=== PATIENT | female | born 1995 | race Hispanic/Latino ===

== ENCOUNTER 2022-04-28 19:29 | Emergency (ER) | payer OTHER ==
[~2022-04-28] VITALS: Ht 149.9 cm; Wt 49.9 kg
[2022-04-28] MEDS ORDERED: LACTATED RINGERS 1000ML 1,000 ML IV ONE (20:30)
[2022-04-28] MEDS ORDERED: MORPHINE 4 MG SYG IVP ONE (20:30)
[2022-04-28] MEDS ORDERED: ONDANSETRON 4MG INJ IVP ONE (20:30)
[2022-04-28 20:32] LABS: BASOPHILS % (AUTO) 0.3 % (0.0-5.0); EOSINOPHILS % (AUTO) 0.9 % (0.0-8.0); HEMATOCRIT 41.6 % (36-48); LYMPHOCYTES % (AUTO) 26.3 % (21.0-51.0); MEAN CORPUSCULAR HGB CONC 32.9 g/dL (32.0-36.0); MEAN CORPUSCULAR VOLUME 88.1 fL (79-99); MONOCYTES % (AUTO) 9.4 % (3.0-13.0); NEUTROPHILS % (AUTO) 62.7 % (40.0-77.0); PLATELET COUNT (AUTO) 306 K/uL (130-400); RED BLOOD CELL COUNT(AUTO) 4.72 MIL/uL (4.00-5.50); RED CELL DISTRIBUTION WIDTH 12.8 % (11.0-15.5); WHITE BLOOD COUNT (AUTO) 15.8 K/uL (4.8-10.8)
[2022-04-28] MEDS ORDERED: IOHEXOL 350 MG/ML 100ML INFUS..BTL IV ONE (20:36)
[2022-04-28 20:41] LABS: CREATININE 0.6 mg/dL (0.5-1.5); POTASSIUM 3.2 mmol/L (3.5-5.1)
[2022-04-28 20:42] LABS: INR 0.94 (0.85-1.15); PROTHROMBIN TIME 10.3 SEC (9.6-11.6)
[2022-04-28 20:43] LABS: PARTIAL THROMBOPLASTIN TIME 26.8 SEC (26.3-35.5)
[2022-04-28 20:53] LABS: ALBUMIN 3.9 g/dL (3.5-5.0); TOTAL PROTEIN, SERUM 7.5 g/dL (6.0-8.3)
[2022-04-28 21:22] LABS: APPEARANCE,URINE CLEAR (CLEAR); BILIRUBIN,URINE NEGATIVE (NEGATIVE); COLOR,URINE COLORLESS (YELLOW); GLUCOSE, URINE (UA) NEGATIVE (NEGATIVE); KETONES,URINE NEGATIVE (NEGATIVE); LEUKOCYTE ESTERASE ,URINE NEGATIVE Leu/uL (NEGATIVE); NITRATE,URINE NEGATIVE (NEGATIVE); OCCULT BLOOD,URINE NEGATIVE (NEGATIVE); PH,URINE 6.5 (5.0-8.0); PROTEIN,URINE NEGATIVE (NEGATIVE); UROBILINOGEN,URINE 0.2 mg/dL (0.2-1.0)
[2022-04-28] MEDS ORDERED: IBUP-1493 PO (21:57)
[2022-04-28] MEDS ORDERED: CYCL-309 PO (21:57)
[2022-04-28 22:15] VITALS: BP 141/75
== END 2022-04-28 22:26 | disposition home or self-care (01) ==
LOC: EDH 19:29
DX: S16.1XXA Strain of muscle, fascia and tendon at neck level, initial encounter (principal); S05.12XA Contusion of eyeball and orbital tissues, left eye, initial encounter; S05.11XA Contusion of eyeball and orbital tissues, right eye, initial encounter; V49.88XA Car occupant (driver) (passenger) injured in other specified transport accidents, initial encounter; Y93.89 Activity, other specified; Y92.89 Other specified places as the place of occurrence of the external cause; Y99.8 Other external cause status
CPT/HCPCS: 99285; 70450; 96374; 96361; 96375; 82550; 83874; 84484; 80053; 85025; 85610; 85730; 81003; 81025; 36415; 72125; 71260; 70486; 74177; J7120; J2405; J2270; Q9967

== ENCOUNTER 2022-08-09 18:44 | Emergency (ER) | payer OTHER ==
[~2022-08-09] VITALS: Ht 149.9 cm; Wt 49.9 kg
[~2022-08-09 18:44] MED LIST: CYCL-309 PO; IBUP-1493 PO
[2022-08-09] MEDS ORDERED: ACETAMINOPHEN 325 MG TAB PO ONE (21:00)
[2022-08-09 21:06] LABS: BASOPHILS % (AUTO) 0.2 % (0.0-5.0); EOSINOPHILS % (AUTO) 0.5 % (0.0-8.0); HEMATOCRIT 42.9 % (36-48); LYMPHOCYTES % (AUTO) 28.8 % (21.0-51.0); MEAN CORPUSCULAR HEMOGLOBIN 29.6 pg (27.0-33.0); MEAN CORPUSCULAR HGB CONC 33.3 g/dL (32.0-36.0); MEAN CORPUSCULAR VOLUME 88.8 fL (79-99); MONOCYTES % (AUTO) 8.8 % (3.0-13.0); NEUTROPHILS % (AUTO) 61.4 % (40.0-77.0); PLATELET COUNT (AUTO) 297 K/uL (130-400); RED BLOOD CELL COUNT(AUTO) 4.83 MIL/uL (4.00-5.50)
[2022-08-09 21:15] LABS: CREATININE 0.8 mg/dL (0.5-1.5); POTASSIUM 3.6 mmol/L (3.5-5.1)
[2022-08-09 21:19] LABS: ALBUMIN 4.5 g/dL (3.5-5.0); TOTAL PROTEIN, SERUM 8.3 g/dL (6.0-8.3)
[2022-08-09 21:23] LABS: APPEARANCE,URINE CLEAR (CLEAR); BILIRUBIN,URINE NEGATIVE (NEGATIVE); COLOR,URINE YELLOW (YELLOW); GLUCOSE, URINE (UA) NEGATIVE (NEGATIVE); KETONES,URINE 5 mg/dL (NEGATIVE); LEUKOCYTE ESTERASE ,URINE NEGATIVE Leu/uL (NEGATIVE); NITRATE,URINE NEGATIVE (NEGATIVE); OCCULT BLOOD,URINE NEGATIVE (NEGATIVE); PH,URINE 5.5 (5.0-8.0); PROTEIN,URINE 20 mg/dL (NEGATIVE); UROBILINOGEN,URINE 0.2 mg/dL (0.2-1.0)
[2022-08-09 21:41] LABS: HCG,QUALITATIVE URINE NEGATIVE (NEGATIVE); MUCUS,URINE MANY LPF (None Seen); RBC,URINE 0-1 /HPF (0-1); SQUAMOUS EPITHELIAL CELL,UR FEW /HPF (0-2)
[2022-08-09 22:13] VITALS: BP 132/60
== END 2022-08-09 22:39 | disposition home or self-care (01) ==
LOC: EDH 18:44
DX: S16.1XXA Strain of muscle, fascia and tendon at neck level, initial encounter (principal); R51.9 Headache, unspecified; R50.9 Fever, unspecified; M79.10 Myalgia, unspecified site; Z20.822 Contact with and (suspected) exposure to COVID-19; Z79.899 Other long term (current) drug therapy; Z90.49 Acquired absence of other specified parts of digestive tract; Z90.89 Acquired absence of other organs; Z98.890 Other specified postprocedural states; X58.XXXA Exposure to other specified factors, initial encounter; Y93.89 Activity, other specified; Y92.89 Other specified places as the place of occurrence of the external cause; Y99.8 Other external cause status
CPT/HCPCS: 99283; 87635; 80053; 85025; 87880; 87804 ×2; 81001; 81025; 36415; C9803